=== PATIENT | male | born 1950 | race Caucasian/White ===

== ENCOUNTER 2016-08-25 13:45 | Emergency (ER) | payer MEDICARE, OTHER ==
[~2016-08-25 13:45] MED LIST: ECOTRIN325 MG PO; FINASTERIDE5 MG PO; FLOMAX 0.4 MG0.4 MG PO; FLONASE 0.05% N16 GM INH; HUMALOG100 UNIT/1 SC; KLONOPIN TAB 00.5 MG PO; LANTUS100 UNIT/1 SC; LIDODERM PATCH 51 EA TOP; LIPITOR TAB 2020 MG PO; LISINOPRIL40 MG PO; LOPRESSOR 50 MG50 MG PO; LORATADINE10 MG PO; LORCET HD 10-31 EACH PO; NEURONTIN 400400 MG PO; NITROSTAT0.4 MG SL; NORCO 7.5-3251 EACH PO; NORVASC 5 MG TAB5 MG PO; VITAMIN C 500500 MG PO
[2017-01-24] MEDS ORDERED: VANCOCIN INJ (21:08)
[2017-01-24] MEDS ORDERED: NEURONTIN 400400 MG PO (21:09)
[2017-01-24] MEDS ORDERED: LYRICA300 MG PO (21:10)
== END 2016-08-25 15:47 | disposition home or self-care (01) ==
LOC: ER1 13:45
DX: M25.511 Pain in right shoulder (principal); L03.115 Cellulitis of right lower limb; V29.3XXA Motorcycle rider (driver) (passenger) injured in unspecified nontraffic accident, initial encounter; I10 Essential (primary) hypertension; E11.8 Type 2 diabetes mellitus with unspecified complications
CPT/HCPCS: 71020; 73030; 99283

== ENCOUNTER 2016-08-31 13:30 | Inpatient (IN) | payer MEDICARE, OTHER ==
[~2016-08-31] VITALS: Ht 177.8 cm; Wt 99.8 kg
[2016-08-31 15:13] LABS: RED BLOOD COUNT 4.83 M/UL (4.20-5.50); WHITE BLOOD COUNT 8.7 K/UL (4.5-11.0)
[2016-08-31 15:34] LABS: BUN/CREATININE RATIO 27 (0-10)
[2016-09-01 04:54] LABS: BUN/CREATININE RATIO 20 (0-10)
[2016-09-01 05:06] LABS: HEMOGLOBIN 13.1 gm/dl (14.0-17.5); RED BLOOD COUNT 4.48 M/UL (4.20-5.50); WHITE BLOOD COUNT 8.4 K/UL (4.5-11.0)
[2016-09-02 05:49] LABS: HEMOGLOBIN 13.4 gm/dl (14.0-17.5); RED BLOOD COUNT 4.6 M/UL (4.20-5.50); WHITE BLOOD COUNT 11.7 K/UL (4.5-11.0)
[2016-09-02 06:20] LABS: BUN/CREATININE RATIO 21 (0-10)
[2016-09-03 06:22] LABS: RED BLOOD COUNT 4.42 M/UL (4.20-5.50); WHITE BLOOD COUNT 9.9 K/UL (4.5-11.0)
[2016-09-03 06:59] LABS: BUN/CREATININE RATIO 19 (0-10)
[2016-09-04 05:55] LABS: BUN/CREATININE RATIO 17 (0-10)
[2016-09-05 08:09] LABS: BUN/CREATININE RATIO 25 (0-10)
[2016-09-06 05:13] LABS: HEMOGLOBIN 12.9 gm/dl (14.0-17.5); RED BLOOD COUNT 4.35 M/UL (4.20-5.50); WHITE BLOOD COUNT 8.3 K/UL (4.5-11.0)
[2016-09-06 05:29] LABS: BUN/CREATININE RATIO 29 (0-10)
[2016-09-07 05:26] LABS: BUN/CREATININE RATIO 26 (0-10)
[2016-09-08 06:19] LABS: BUN/CREATININE RATIO 28 (0-10)
[2016-09-09 06:01] LABS: RED BLOOD COUNT 4.14 M/UL (4.20-5.50)
[2016-09-09 06:28] LABS: BUN/CREATININE RATIO 36 (0-10)
[2016-09-10] MEDS ORDERED: INVANZ 1 GM VIAL1 GM IV (13:45)
[2016-09-10] MEDS ORDERED: HUMALOG100 UNIT/1 SQ (13:51)
[2017-01-24] MEDS ORDERED: VANCOCIN INJ (21:08)
[2017-01-24] MEDS ORDERED: NEURONTIN 400400 MG PO (21:09)
[2017-01-24] MEDS ORDERED: LYRICA300 MG PO (21:10)
== END 2016-09-10 17:16 | disposition home or self-care (01) | DRG 264 ==
LOC: M/S 13:30
PROVIDERS: Internal Medicine; Physician Assistant; ADMIT Internal Medicine
DX: E11.52 Type 2 diabetes mellitus with diabetic peripheral angiopathy with gangrene (principal); L97.421 Non-pressure chronic ulcer of left heel and midfoot limited to breakdown of skin; L03.116 Cellulitis of left lower limb; M86.672 Other chronic osteomyelitis, left ankle and foot; E11.621 Type 2 diabetes mellitus with foot ulcer; E11.42 Type 2 diabetes mellitus with diabetic polyneuropathy; R45.1 Restlessness and agitation; I12.9 Hypertensive chronic kidney disease with stage 1 through stage 4 chronic kidney disease, or unspecified chronic kidney disease; Z91.14 Patient's other noncompliance with medication regimen; E11.22 Type 2 diabetes mellitus with diabetic chronic kidney disease; N18.3 Chronic kidney disease, stage 3 (moderate); I25.10 Atherosclerotic heart disease of native coronary artery without angina pectoris; Z95.5 Presence of coronary angioplasty implant and graft; N40.0 Benign prostatic hyperplasia without lower urinary tract symptoms; E11.65 Type 2 diabetes mellitus with hyperglycemia; M17.0 Bilateral primary osteoarthritis of knee; M19.011 Primary osteoarthritis, right shoulder; K57.90 Diverticulosis of intestine, part unspecified, without perforation or abscess without bleeding; E78.5 Hyperlipidemia, unspecified; E66.9 Obesity, unspecified; Z90.49 Acquired absence of other specified parts of digestive tract; Z86.14 Personal history of Methicillin resistant Staphylococcus aureus infection; Z95.1 Presence of aortocoronary bypass graft; Z79.4 Long term (current) use of insulin; Z79.82 Long term (current) use of aspirin; Z79.899 Other long term (current) drug therapy; Z83.3 Family history of diabetes mellitus; Z87.828 Personal history of other (healed) physical injury and trauma; W18.30XA Fall on same level, unspecified, initial encounter; Y93.9 Activity, unspecified; Y92.009 Unspecified place in unspecified non-institutional (private) residence as the place of occurrence of the external cause; Z79.891 Long term (current) use of opiate analgesic
CPT/HCPCS: 36415; 73030; 73718; 80048; 80053; 80061; 80202; 82962; 83036; 83735; 84100; 85025; 85027; 86140; 87070; 87077; 87186; 87205; 90714; 93926; J0295; J0360; J1335; J1650; J2060; J3370; J7050; J7070

== ENCOUNTER → 2016-09-11 | Outpatient (CLI) | payer MEDICARE, OTHER ==
[~2016-09-11] VITALS: Ht 177.8 cm; Wt 99.8 kg
[~2016-09-11] MED LIST changes: +BACTRIM 400-801 EACH PO; +CLEOCIN HCL300 MG PO; +EFFER-K 10 MEQ10 MEQ PO; +HUMALOG100 UNIT/1 SQ; +INVANZ 1 GM VIAL1 GM IV; +LASIX TAB 20 MG20 MG PO; +LEVAQUIN500 MG PO; +LYRICA300 MG PO; +NORCO 5-325 TA1 EACH PO; +VANCOCIN INJ
== END ==
LOC: OPSV 08:17
DX: M86.9 Osteomyelitis, unspecified (principal)
CPT/HCPCS: 96365; J1335; J7050

== ENCOUNTER → 2016-09-13 | Outpatient (CLI) | payer MEDICARE, OTHER ==
[~2016-09-13] VITALS: Ht 177.8 cm; Wt 99.8 kg
== END ==
LOC: OPSV 08:05
DX: M86.8X7 Other osteomyelitis, ankle and foot (principal)
CPT/HCPCS: 96365; J1335; J7050

== ENCOUNTER → 2016-09-15 | Outpatient (CLI) | payer MEDICARE, OTHER | LOC: OPSV 08:30 | DX: M86.9 Osteomyelitis, unspecified (principal) | CPT/HCPCS: J1335; J7050 ==

== ENCOUNTER → 2016-09-16 | Outpatient (CLI) | payer MEDICARE, OTHER ==
[~2016-09-16] VITALS: Ht 177.8 cm; Wt 99.8 kg
== END ==
LOC: OPSV 08:30
DX: M86.9 Osteomyelitis, unspecified (principal)
CPT/HCPCS: 96365; J1335; J7050

== ENCOUNTER → 2016-09-17 | Outpatient (CLI) | payer MEDICARE, OTHER ==
[~2016-09-17] VITALS: Ht 177.8 cm; Wt 99.8 kg
== END ==
LOC: OPSV 08:30
DX: M86.9 Osteomyelitis, unspecified (principal)
CPT/HCPCS: 96365; J1335; J7050

== ENCOUNTER → 2016-09-18 | Outpatient (CLI) | payer MEDICARE, OTHER | LOC: OPSV 07:19 | DX: Z48.00 Encounter for change or removal of nonsurgical wound dressing (principal) | CPT/HCPCS: 96365; J1335; J7050 ==

== ENCOUNTER → 2016-09-20 | Outpatient (CLI) | payer MEDICARE, OTHER | LOC: OPSV 08:30 | DX: M86.9 Osteomyelitis, unspecified (principal) | CPT/HCPCS: 96365; J1335; J7050 ==

== ENCOUNTER → 2016-09-21 | Outpatient (CLI) | payer MEDICARE, OTHER ==
[~2016-09-21] VITALS: Ht 177.8 cm; Wt 99.8 kg
== END ==
LOC: OPSV 09-14 08:30
DX: M86.8X7 Other osteomyelitis, ankle and foot (principal)
CPT/HCPCS: 96365; J1335; J7050

== ENCOUNTER → 2016-09-22 | Outpatient (CLI) | payer MEDICARE, OTHER ==
[~2016-09-22] VITALS: Ht 177.8 cm; Wt 99.8 kg
== END ==
LOC: OPSV 12:13
DX: M86.9 Osteomyelitis, unspecified (principal)
CPT/HCPCS: 96365; J1335; J7050

== ENCOUNTER → 2016-09-23 | Outpatient (CLI) | payer MEDICARE, OTHER ==
[~2016-09-23] VITALS: Ht 177.8 cm; Wt 99.8 kg
== END ==
LOC: OPSV 12:45
DX: M86.9 Osteomyelitis, unspecified (principal)
CPT/HCPCS: 96365; J1335; J7050

== ENCOUNTER → 2016-09-24 | Outpatient (CLI) | payer MEDICARE, OTHER ==
[~2016-09-24] VITALS: Ht 177.8 cm; Wt 99.8 kg
== END ==
LOC: OPSV 11:32
DX: M86.9 Osteomyelitis, unspecified (principal)
CPT/HCPCS: 96365; J1335; J7050

== ENCOUNTER → 2016-09-27 | Outpatient (CLI) | payer MEDICARE, OTHER ==
[~2016-09-27] VITALS: Ht 177.8 cm; Wt 99.8 kg
== END ==
LOC: OPSV 12:40
DX: M86.9 Osteomyelitis, unspecified (principal)
CPT/HCPCS: 96365; J1335; J7050

== ENCOUNTER 2016-10-01 19:32 | Inpatient (IN) | payer MEDICARE, OTHER ==
[~2016-10-01] VITALS: Ht 177.8 cm; Wt 114.8 kg
[~2016-10-01 19:32] MED LIST changes: -BACTRIM 400-801 EACH PO; -CLEOCIN HCL300 MG PO; -EFFER-K 10 MEQ10 MEQ PO; -LASIX TAB 20 MG20 MG PO; -LEVAQUIN500 MG PO; -LYRICA300 MG PO; -NORCO 5-325 TA1 EACH PO; -VANCOCIN INJ
[2016-10-01 21:24] LABS: HEMOGLOBIN 12.1 gm/dl (14.0-17.5); RED BLOOD COUNT 4.17 M/UL (4.20-5.50); WHITE BLOOD COUNT 8.7 K/UL (4.5-11.0)
[2016-10-01 21:50] LABS: BUN/CREATININE RATIO 27 (0-10)
--- NOTE | 2016-10-02 01:29 | NUR ---
NOTIFIED DR. CROWDER OF DRUG SCREEN RESULTS. HE DID NOT WANT ANY TYPE OF PROTOCOL IN PLACE. ALSO, ASKED ABOUT CONTINUOS PULSE OX SINCE THE PATIENT HAD SATURATION IN THE 70'S WHILE IN THE ED AND ASLEEP. HIS RESPONSE TO THAT WAS ALSO NO.
[2016-10-02 05:31] LABS: RED BLOOD COUNT 4.13 M/UL (4.20-5.50); WHITE BLOOD COUNT 8.3 K/UL (4.5-11.0)
[2016-10-02 05:51] LABS: BUN/CREATININE RATIO 29 (0-10)
[2016-10-02] MEDS ORDERED: EFFER-K 10 MEQ10 MEQ PO (11:25)
[2016-10-02] MEDS ORDERED: LASIX TAB 20 MG20 MG PO (11:25)
[2016-10-02] MEDS ORDERED: NORCO 5-325 TA1 EACH PO (11:26)
[2016-10-03 06:47] LABS: HEMOGLOBIN 12.5 gm/dl (14.0-17.5); RED BLOOD COUNT 4.3 M/UL (4.20-5.50); WHITE BLOOD COUNT 9.7 K/UL (4.5-11.0)
[2016-10-03 06:59] LABS: BUN/CREATININE RATIO 24 (0-10)
[2016-10-04 06:37] LABS: HEMOGLOBIN 12.1 gm/dl (14.0-17.5); RED BLOOD COUNT 4.23 M/UL (4.20-5.50)
[2016-10-04 06:39] LABS: WHITE BLOOD COUNT 5.9 K/UL (4.5-11.0)
[2016-10-04 06:51] LABS: BUN/CREATININE RATIO 20 (0-10)
[2016-10-05 04:51] LABS: HEMOGLOBIN 12.4 gm/dl (14.0-17.5); RED BLOOD COUNT 4.28 M/UL (4.20-5.50); WHITE BLOOD COUNT 5.5 K/UL (4.5-11.0)
[2016-10-05 05:15] LABS: BUN/CREATININE RATIO 20 (0-10)
[2017-01-24] MEDS ORDERED: VANCOCIN INJ (21:08)
[2017-01-24] MEDS ORDERED: NEURONTIN 400400 MG PO (21:09)
[2017-01-24] MEDS ORDERED: LYRICA300 MG PO (21:10)
== END 2016-10-06 11:01 | disposition home or self-care (01) | DRG 637 ==
LOC: ER1 19:32 → M/S 22:23 → ZEROF 22:23 → M/S 10-02 00:09
PROVIDERS: Emergency Medicine; Hospitalist; Internal Medicine; ADMIT Internal Medicine
DX: E11.621 Type 2 diabetes mellitus with foot ulcer (principal); G93.40 Encephalopathy, unspecified; N30.00 Acute cystitis without hematuria; L97.429 Non-pressure chronic ulcer of left heel and midfoot with unspecified severity; L03.116 Cellulitis of left lower limb; M25.511 Pain in right shoulder; E11.42 Type 2 diabetes mellitus with diabetic polyneuropathy; G62.9 Polyneuropathy, unspecified; I10 Essential (primary) hypertension; D64.9 Anemia, unspecified; I25.10 Atherosclerotic heart disease of native coronary artery without angina pectoris; M19.072 Primary osteoarthritis, left ankle and foot; R60.0 Localized edema; Z91.14 Patient's other noncompliance with medication regimen; L85.3 Xerosis cutis; M25.561 Pain in right knee; F32.9 Major depressive disorder, single episode, unspecified; E78.5 Hyperlipidemia, unspecified; N40.0 Benign prostatic hyperplasia without lower urinary tract symptoms; Z99.3 Dependence on wheelchair; Z90.49 Acquired absence of other specified parts of digestive tract; Z95.5 Presence of coronary angioplasty implant and graft; Z95.1 Presence of aortocoronary bypass graft; Z86.19 Personal history of other infectious and parasitic diseases; Z86.14 Personal history of Methicillin resistant Staphylococcus aureus infection; Z79.4 Long term (current) use of insulin; Z79.82 Long term (current) use of aspirin; Z79.899 Other long term (current) drug therapy
CPT/HCPCS: 36415; 36600; 70450; 71010; 73630; 78315; 80048; 80053; 80202; 80307; 81001; 82140; 82550; 82553; 82803; 82962; 83605; 83735; 83874; 84484; 85025; 85027; 87040; 87070; 87086; 87205; 93005; 94664; 96365; 99285; A9503; G0378; J1335; J1650; J3370; J7050; J7070; J7120

== ENCOUNTER 2016-10-16 08:58 | Emergency (ER) | payer MEDICARE, OTHER ==
[~2016-10-16 08:58] MED LIST changes: +EFFER-K 10 MEQ10 MEQ PO; +LASIX TAB 20 MG20 MG PO; +NORCO 5-325 TA1 EACH PO
[2017-01-24] MEDS ORDERED: VANCOCIN INJ (21:08)
[2017-01-24] MEDS ORDERED: NEURONTIN 400400 MG PO (21:09)
[2017-01-24] MEDS ORDERED: LYRICA300 MG PO (21:10)
== END 2016-10-16 09:52 | disposition left against medical advice (07) ==
LOC: ER1 08:58
DX: L08.9 Local infection of the skin and subcutaneous tissue, unspecified (principal); E11.40 Type 2 diabetes mellitus with diabetic neuropathy, unspecified; I12.9 Hypertensive chronic kidney disease with stage 1 through stage 4 chronic kidney disease, or unspecified chronic kidney disease; N18.3 Chronic kidney disease, stage 3 (moderate); E11.22 Type 2 diabetes mellitus with diabetic chronic kidney disease; Z95.5 Presence of coronary angioplasty implant and graft; Z90.49 Acquired absence of other specified parts of digestive tract
CPT/HCPCS: 36415; 99283

== ENCOUNTER → 2016-10-21 | Outpatient (CLI) | payer MEDICARE, OTHER ==
[~2016-10-21] MED LIST changes: +BACTRIM 400-801 EACH PO; +CLEOCIN HCL300 MG PO; +LEVAQUIN500 MG PO; +LYRICA300 MG PO; +VANCOCIN INJ
[2016-10-21 16:20] LABS: HEMOGLOBIN 12.6 gm/dl (14.0-17.5); RED BLOOD COUNT 4.36 M/UL (4.20-5.50); WHITE BLOOD COUNT 9.6 K/UL (4.5-11.0)
[2016-10-21 16:47] LABS: BUN/CREATININE RATIO 24 (0-10)
== END ==
LOC: OPSV 13:30
PROVIDERS: Internal Medicine Infectious Disease
DX: L89.899 Pressure ulcer of other site, unspecified stage (principal)
CPT/HCPCS: 36592; 80053; 85025; 86140; G0463

== ENCOUNTER → 2016-10-30 | Outpatient (CLI) | payer MEDICARE, OTHER ==
[~2016-10-30] VITALS: Ht 177.8 cm; Wt 113.4 kg
== END ==
LOC: OPSV 10-29 13:00
DX: M86.8X7 Other osteomyelitis, ankle and foot (principal)
CPT/HCPCS: 96365; J0696

== ENCOUNTER → 2016-10-31 | Outpatient (CLI) | payer MEDICARE, OTHER ==
[~2016-10-31] VITALS: Ht 177.8 cm; Wt 113.4 kg
== END ==
LOC: OPSV 07:42
DX: M86.9 Osteomyelitis, unspecified (principal)
CPT/HCPCS: 96365; J0696

== ENCOUNTER → 2016-11-01 | Outpatient (CLI) | payer MEDICARE, OTHER ==
[~2016-11-01] VITALS: Ht 177.8 cm; Wt 113.4 kg
== END ==
LOC: OPSV 12:39
DX: M86.9 Osteomyelitis, unspecified (principal)
CPT/HCPCS: 96365; J0696

== ENCOUNTER → 2016-11-02 | Outpatient (CLI) | payer MEDICARE, OTHER ==
[~2016-11-02] VITALS: Ht 177.8 cm; Wt 113.4 kg
== END ==
LOC: OPSV 13:00
DX: M86.8X7 Other osteomyelitis, ankle and foot (principal)
CPT/HCPCS: 96365; J0696

== ENCOUNTER → 2016-11-03 | Outpatient (CLI) | payer MEDICARE, OTHER ==
[~2016-11-03] VITALS: Ht 177.8 cm; Wt 113.4 kg
== END ==
LOC: OPSV 12:53
DX: M86.8X7 Other osteomyelitis, ankle and foot (principal)
CPT/HCPCS: 96365; J0696

== ENCOUNTER → 2016-11-04 | Outpatient (CLI) | payer MEDICARE, OTHER ==
[~2016-11-04] VITALS: Ht 177.8 cm; Wt 113.4 kg
== END ==
LOC: OPSV 12:28
DX: M86.8X7 Other osteomyelitis, ankle and foot (principal)
CPT/HCPCS: 96365; J0696

== ENCOUNTER → 2016-11-05 | Outpatient (CLI) | payer MEDICARE, OTHER ==
[~2016-11-05] VITALS: Ht 177.8 cm; Wt 113.4 kg
== END ==
LOC: OPSV 12:42
DX: M86.8X7 Other osteomyelitis, ankle and foot (principal)
CPT/HCPCS: 96365; J0696

== ENCOUNTER → 2016-11-06 | Outpatient (CLI) | payer MEDICARE, OTHER ==
[~2016-11-06] VITALS: Ht 177.8 cm; Wt 113.4 kg
== END ==
LOC: OPSV 08:37
DX: M86.8X7 Other osteomyelitis, ankle and foot (principal)
CPT/HCPCS: 96365; J0696

== ENCOUNTER 2016-11-11 17:52 | Inpatient (IN) | payer MEDICARE, OTHER ==
[~2016-11-11] VITALS: Ht 177.8 cm; Wt 96.8 kg
[~2016-11-11 17:52] MED LIST changes: -BACTRIM 400-801 EACH PO; -CLEOCIN HCL300 MG PO; -LEVAQUIN500 MG PO; -LYRICA300 MG PO; -VANCOCIN INJ
[2016-11-11] MEDS ORDERED: CLEOCIN HCL300 MG PO (19:54)
[2016-11-11] MEDS ORDERED: BACTRIM 400-801 EACH PO (19:55)
[2016-11-13 06:17] LABS: HEMOGLOBIN 11.1 gm/dl (14.0-17.5); RED BLOOD COUNT 3.88 M/UL (4.20-5.50); WHITE BLOOD COUNT 5.8 K/UL (4.5-11.0)
[2016-11-13 06:30] LABS: BUN/CREATININE RATIO 27 (0-10)
[2016-11-15 04:10] LABS: RED BLOOD COUNT 4.19 M/UL (4.20-5.50)
[2016-11-15 04:37] LABS: BUN/CREATININE RATIO 30 (0-10)
[2016-11-18 05:15] LABS: RED BLOOD COUNT 4.18 M/UL (4.20-5.50); WHITE BLOOD COUNT 6.9 K/UL (4.5-11.0)
[2016-11-18 05:34] LABS: BUN/CREATININE RATIO 41 (0-10)
[2016-11-19] MEDS ORDERED: LEVAQUIN500 MG PO (15:08)
[2017-01-24] MEDS ORDERED: VANCOCIN INJ (21:08)
[2017-01-24] MEDS ORDERED: NEURONTIN 400400 MG PO (21:09)
[2017-01-24] MEDS ORDERED: LYRICA300 MG PO (21:10)
== END 2016-11-19 17:18 | disposition home health service (06) | DRG 623 ==
LOC: M/S 17:52 → MED SURG 4 18:18 → M/S 18:18 → MED SURG 4 11-12 18:31 → M/S 11-19 09:55
PROVIDERS: Family Medicine; Physician Assistant Medical; Podiatrist Foot & Ankle Surgery; ADMIT Hospitalist
PROC: 0HRNXK4 Replacement of Left Foot Skin with Nonautologous Tissue Substitute, Partial Thickness, External Approach (ICD-10-PCS; 2016-11-12)
PROC: 0JBR0ZZ Excision of Left Foot Subcutaneous Tissue and Fascia, Open Approach (ICD-10-PCS; principal; 2016-11-12 15:00)
DX: E11.621 Type 2 diabetes mellitus with foot ulcer (principal); L97.429 Non-pressure chronic ulcer of left heel and midfoot with unspecified severity; E11.52 Type 2 diabetes mellitus with diabetic peripheral angiopathy with gangrene; M86.9 Osteomyelitis, unspecified; L03.116 Cellulitis of left lower limb; I50.30 Unspecified diastolic (congestive) heart failure; G62.9 Polyneuropathy, unspecified; I25.10 Atherosclerotic heart disease of native coronary artery without angina pectoris; E78.5 Hyperlipidemia, unspecified; N40.0 Benign prostatic hyperplasia without lower urinary tract symptoms; I12.9 Hypertensive chronic kidney disease with stage 1 through stage 4 chronic kidney disease, or unspecified chronic kidney disease; E11.22 Type 2 diabetes mellitus with diabetic chronic kidney disease; N18.3 Chronic kidney disease, stage 3 (moderate); E11.69 Type 2 diabetes mellitus with other specified complication; B96.5 Pseudomonas (aeruginosa) (mallei) (pseudomallei) as the cause of diseases classified elsewhere; E66.9 Obesity, unspecified; I27.2 Other secondary pulmonary hypertension; Z91.19 Patient's noncompliance with other medical treatment and regimen; Z86.14 Personal history of Methicillin resistant Staphylococcus aureus infection; Z95.1 Presence of aortocoronary bypass graft; Z79.4 Long term (current) use of insulin; Z68.30 Body mass index [BMI] 30.0-30.9, adult
CPT/HCPCS: 36415; 78315; 80048; 82962; 83735; 85027; 86140; 87070; 87077; 87186; 87205; 96365; A9503; J0696; J1335; J1650; J1956; J2270; J2795; J3370; J7050; J7070; J7120; Q4133

== ENCOUNTER 2016-11-19 21:30 | Emergency (ER) | payer MEDICARE, OTHER ==
[~2016-11-19 21:30] MED LIST changes: +BACTRIM 400-801 EACH PO; +CLEOCIN HCL300 MG PO; +LEVAQUIN500 MG PO
[2017-01-24] MEDS ORDERED: VANCOCIN INJ (21:08)
[2017-01-24] MEDS ORDERED: NEURONTIN 400400 MG PO (21:09)
[2017-01-24] MEDS ORDERED: LYRICA300 MG PO (21:10)
== END 2016-11-20 03:31 | disposition home or self-care (01) ==
LOC: ER1 21:30
DX: M17.11 Unilateral primary osteoarthritis, right knee (principal); M86.8X7 Other osteomyelitis, ankle and foot; E11.9 Type 2 diabetes mellitus without complications; Z86.79 Personal history of other diseases of the circulatory system
CPT/HCPCS: 73564; 93005; 99284